=== PATIENT | female | born 1940 | race Caucasian/White ===

== ENCOUNTER 2017-07-11 11:12 | Inpatient (IN) ==
--- NOTE | 2017-07-11 14:09 | Internal Med History&Physical ---
Date of Encounter: 07/11/17 Time of Encounter: 14:04 Assessment and Plan (1) NSTEMI (non-ST elevated myocardial infarction) Current visit: Yes Status: Acute Patient with exertion or shortness of breath likely angina equivalent troponin 0.11 patient started on heparin will obtain 2-D echo and trend troponin and cardiology is consulted (2) COPD (chronic obstructive pulmonary disease) Current visit: Yes Status: Acute Patient has no diagnosis of COPD but very likely she has COPD and smoking history of a longtime exam she had decreased breath sounds and some wheezing started on steroids and the DuoNeb and consult customs guard for formal pulmonary function tests probably as outpatient when she stable Qualifiers: COPD type: COPD with acute exacerbation Qualified Code(s): J44.1 - Chronic obstructive pulmonary disease with (acute) exacerbation (3) Smoking Current visit: Yes Status: Chronic chronic Internal Medicine - H&P: HPI Chief complaint: sob, transfer from [place] Admitted From: Hospital to Hospital Transfer Plans for Post Hospital Care: Home History of present illness: Ms. Mata is a 76 year old female Patient transfer from [facility] due to positive troponin 0.11 patient with history of hypertension, COPD, smoking history, no prior cardiac event history patient was seen in the hospital about 4 days ago with shortness of breath was treated for bronchitis and some steroid some inhaler and then sent home apparently she did not get better still short of breath this morning feeling lightheaded with worsening shortness of breath especially with exertion no chest pain or tightness or pressure patient went back to [facility] and patient troponin was 0.5 and repeat was 0.11 she was started on l heparin and then transferred here after discussion with cardiology DR Almeida she also has some cough which is productive of mostly clear sputum no fever or chills denies any nausea or vomiting and remains no chest pain. Past Med Surg Social Fam HX - Past Medical History Medical history: COPD, hypertension - Past Surgical History Surgical History: no surgical history - Social History Smokeless Tobacco Status: Yes Internal Medicine - H&P: Meds Albuterol Sulfate [Ventolin Hfa] 1 puff IH AD 07/11/17 [History] Atorvastatin Calcium [Lipitor] 20 mg PO HS 07/11/17 [History] Azithromycin [Azithromycin] 1 tab PO DAILY 07/11/17 [History] Diltiazem CD (24hr) [Cardizem CD] 240 mg PO DAILY 07/11/17 [History] Enalapril Maleate [Vasotec] 5 mg PO DAILY 07/11/17 [History] Omeprazole [PriLOSEC] 20 mg PO DAILY 07/11/17 [History] PARoxetine HCl [Paroxetine HCl] 30 mg PO DAILY 07/11/17 [History] predniSONE [Prednisone] 50 mg PO DAILY 07/11/17 [History] 3 Allergy/AdvReac Type Severity Reaction Status Date / Time No Known Allergies Allergy Verified 07/11/17 14:13 All Systems PM: A 10-system review of systems was performed and is negative for pertinent findings except as documented above in the HPI. - Constitutional Constitutional: no chills, no fever(s), no night sweats - EENT Eyes: no change in vision, no discharge, no pain, no photophobia Ears: no ear discharge, no ear pain, no tinnitus Nose, mouth and throat: no dysphagia, no nasal discharge, no neck pain, no sore throat - Cardiovascular Cardiovascular ROS IM: dyspnea, dyspnea on exertion - Respiratory Respiratory: dyspnea, dyspnea on exertion, wheezing - Gastrointestinal Gastrointestinal: no abdominal pain, no diarrhea, no hematemesis, no hematochezia, no melena, no nausea, no vomiting - Genitourinary Genitourinary: no change in urinary stream, no dysuria, no flank pain, no hematuria - Musculoskeletal Musculoskeletal ROS IM: no numbness, no tingling - Constitutional General appearance: Present: A&O X 3, pleasant - Eye Eye exam: Present: PERRL, conjuntiva pink, sclera anicteric Pupils: Present: PERRL - Respiratory Respiratory exam: Present: rhonchi, wheezes - Cardiovascular Cardiovascular exam: Present: RRR, +S1, +S2. Absent: diastolic murmur, gallop, rubs, systolic murmur - GI/Abdominal GI/Abdominal exam: Present: normal bowel sounds, soft, no peritoneal signs. Absent: distended, tenderness
[2017-07-11] MEDS ORDERED: Ipratropium/Albuterol Neb 3 ML IH PRN (14:20)
[2017-07-11] MEDS: Ipratropium/Albuterol Neb 3 ML IH SCH ×2 (15:52→19:46)
[2017-07-11] MEDS ORDERED: *HR* Heparin 5,000 UNIT/ML VIAL IVP PRN ×2 (17:11)
[2017-07-11] MEDS ORDERED: *HR* Heparin 5,000 UNIT/ML VIAL IVP ONE (17:11)
[2017-07-11] MEDS ORDERED: Heparin 25,000 UNIT/500 ML D5W 25,000 UNIT/500 ML BAG IVC SCH (17:15)
[2017-07-11 17:38] LABS: Hematocrit 40.1 % (35.3-44.9); Mean Corpuscular HGB Conc 34.9 g/dL (31.6-35.5); Mean Corpuscular Hemoglobin 32.3 pg (28.0-33.3); Mean Corpuscular Volume 92.4 fL (83.0-100.0); Mean Platelet Volume 11.2 fL (9.4-12.4); Platelet Count 149 K/mcL (140-400); Red Blood Count 4.34 M/mcL (3.82-4.97); Red Cell Distribution Width 12.8 % (11.5-14.5)
[2017-07-11 17:43] LABS: Prothrombin Time 11.2 Seconds (9.4-12.1)
[2017-07-11 17:46] LABS: Activated Partial Thrombo Time 26.7 Seconds (26.0-36.0)
[2017-07-11 18:45] LABS: VBG HCO3 24 mEq/L (21-27); VBG PCO2 35 mmHg (41-51); VBG PH 7.45 pH Units (7.32-7.42); VBG PO2 63 mmHg (25-50)
[2017-07-11] MEDS: MethylPREDNISolone 40 MG/ML VIAL IVP SCH (18:59)
[2017-07-11] MEDS: 0.9 % Sodium Chloride 1,000 ML IVC SCH (19:00)
[2017-07-11] MEDS ORDERED: *HR* HYDROcodone/Acet 5/325 mg TABLET PO PRN (19:27)
[2017-07-11] MEDS ORDERED: Acetaminophen 325 MG TABLET PO PRN (19:27)
[2017-07-12] MEDS: Ipratropium/Albuterol Neb 3 ML IH SCH ×7 (00:15→23:26)
[2017-07-12] MEDS: MethylPREDNISolone 40 MG/ML VIAL IVP SCH ×4 (00:16→23:08)
[2017-07-12 00:48] LABS: Hematocrit 40.1 % (35.3-44.9); Hemoglobin 13.7 g/dL (11.5-15.4); Immature Granulocytes % 0.3 % (0-4); Lymphocytes # 1.5 K/mcL (0.6-4.6); Lymphocytes % 24.1 %; Mean Corpuscular HGB Conc 34.2 g/dL (31.6-35.5); Mean Corpuscular Hemoglobin 31.6 pg (28.0-33.3); Mean Corpuscular Volume 92.4 fL (83.0-100.0); Mean Platelet Volume 11.3 fL (9.4-12.4); Monocytes # 0.1 K/mcL (0.0-1.3); Monocytes % 1.8 %; Platelet Count 168 K/mcL (140-400); Red Blood Count 4.34 M/mcL (3.82-4.97); Red Cell Distribution Width 12.8 % (11.5-14.5); Segmented Neutrophils % 73.8 %
[2017-07-12 00:51] LABS: Neutrophils # 4.7 K/mcL (1.6-8.9)
[2017-07-12 01:21] LABS: Alanine Aminotransferase 16 Units/L (7-52); Albumin 3.6 g/dL (3.5-5.7); Albumin/Globulin Ratio 1.1 (1.1-2.2); Alkaline Phosphatase 96 Units/L (34-104); Aspartate Amino Transferase 14 Units/L (13-39); BUN/Creatinine Ratio 26 (6-26); Bilirubin,Total 0.3 mg/dL (0.3-1.0); Blood Urea Nitrogen 18 mg/dL (8-23); Calcium 8.8 mg/dL (8.6-10.3); Carbon Dioxide 24 mEq/L (23-29); Chloride 103 mEq/L (98-107); Chol/HDL Ratio 2.4 (0-4.9); Cholesterol 132 mg/dL (< 200); Globulin 3.2 g/dL (2.4-3.5); Glucose 145 mg/dL (70-105); HDL Cholesterol 55 mg/dL (40-59); LDL Cholesterol,Calculated 66 mg/dL (0-99); Magnesium 1.9 mg/dL (1.6-2.6); Osmolality,Calculated 284 (280-300); Potassium 3.7 mEq/L (3.5-5.1); Sodium 135 mEq/L (136-145); Total Protein 6.8 g/dL (6.4-8.9); Triglycerides 54 mg/dL (< 150); eGFR For African Americans > 60 (> 60); eGFR For Non-African Americans > 60 (> 60)
--- NOTE | 2017-07-12 09:25 | Cardiology Consult Note ---
Date of Encounter: 07/12/17 Time of Encounter: 08:30 Assessment and Plan (1) COPD (chronic obstructive pulmonary disease) Current Visit: Yes Status: Acute Per cardiology: -Presented with acute onset shortness of breath. -Significant smoking history. -Chest x-ray from [facility] reviewed with emphysema. -Currently on O2, not normally on O2 at home. -Management per primary service. Qualifiers: COPD type: COPD with acute exacerbation Qualified Code(s): J44.1 - Chronic obstructive pulmonary disease with (acute) exacerbation (2) Elevated troponin Current Visit: Yes Status: Acute Per cardiology: -Troponin 0.05 ([facility]), 0.23 ([facility]) in the setting of COPD exacerbation, HTN. -Denies chest pain. -NO acute ischemic ECG changes. -ON heparin drip, statin, beta rowan. -TTE pending. -No previous cardiac history. -Does have significant risk factros for CAD with smoking, hyperlipidemia, HTN. -Will check stat troponin now. -Will add ASA 81mg daily. -TTE pending. -Further recommendations pending TTE and troponin. -AT this time, do not suspect NSTEMI, suspect demand ischemia. NO cardiac rehab warranted at this time. (3) Hypertension Current Visit: Yes Status: Chronic Per caridology: -KNown HTN. -On amy inhibitor and beta blokcer. -BP 150-160s systolic. -Will titrate amy inhibitor. -Will continue to monitor. Qualifiers: Hypertension type: essential hypertension Qualified Code(s): I10 - Essential (primary) hypertension (4) Smoking Current Visit: Yes Status: Chronic Per cardiology: -Patient reports smoking 1ppd for 57years. -States she knows she needs to quit. -Smoking cessation education provided. Discussion w patient/family: The assessment and plan as outlined above was discussed with the patient who expressed understanding and agreement. All questions were answered. Thank you for involving us in the care of your patient. Please call with any questions. Discussed and reviewed with . History of Present Illness Consult date: 07/11/17 Requesting physician: Dany Montgomery Consult reason: NSTEMI Chief complaint: shortness of breath History of present illness: Ms. Mata is a 76 year old female with a relevant past medical history of HTN, hyperlipidemia, COPD, significant smoking history who presented to [facility] due to sudden onset of shortness of breath. Patient states on Monday she had sudden onset of shortness of breath and presented to [facility], patient states she was discharged home after being seen. Patient states on Monday, she again had sudden onset of shortness of breath while walking to bathroom. Patient states she called the squad and again was taken to [facility]. Patient was transferred to [facility] due to elevated troponins. Patient denies chest pain, denies increased fatigue. Patient states until Monday, her shortness of breath was her baseline. Patient states breathing is somewhat imrpoved today, however is requireing O2, not normally on O2 at home. Past Med Surg Social Fam HX - Past Medical History Attestation: Yes The following information was validated with the patient. Source: patient Medical history: cancer, COPD, hypertension Psychiatric history: depression - Past Surgical History Surgical History: cholecystectomy - Social History Smoking Status: Current every day smoker Packs per day: 0.25 Smokeless Tobacco Status: Yes Alcohol use: none Drug use: none Medications and Allergies Albuterol Sulfate [Ventolin Hfa] 1 puff IH AD 07/11/17 [History] Atorvastatin Calcium [Lipitor] 20 mg PO HS 07/11/17 [History] Azithromycin [Azithromycin] 1 tab PO DAILY 07/11/17 [History] Diltiazem CD (24hr) [Cardizem CD] 240 mg PO DAILY 07/11/17 [History] Enalapril Maleate [Vasotec] 5 mg PO DAILY 07/11/17 [History] Omeprazole [PriLOSEC] 20 mg PO DAILY 07/11/17 [History] PARoxetine HCl [Paroxetine HCl] 30 mg PO DAILY 07/11/17 [History] predniSONE [Prednisone] 50 mg PO DAILY 07/11/17 [History] 3 Allergy/AdvReac Type Severity Reaction Status Date / Time No Known Allergies Allergy Verified 07/11/17 14:13 All Systems Review: A 10-system review of systems was performed and is negative for pertinent findings except as documented above in the HPI. - Cardiovascular Cardiovascular: as per HPI, dyspnea on exertion Physical Examination Vital Signs, Last 4 Hours Temp Pulse Resp BP Pulse Ox 07/12/17 08:44 98.2 F 70 17 169/71 90 07/12/17 08:00 16 92 General: Conversant, No Apparent Distress HEENT: Atraumatic, Normocephaly, Mucus Membranes Moist Neck: No JVD, Normal carotid pulses Cardiac: Reg Rate and Rhythm, Normal S1 and S2, No Murmur Lungs: Other (Lung sounds diminished throughout. ) Neuro: Alert and responsive, No focal deficits noted Abdomen: Soft, Non-Tender Skin: No rashes noted on visualized skin Musculoskeletal: No Chest Wall Tenderness Extremities: No Clubbing, No Cyanosis, No Edema, Normal Pulses Results 07/12/17 00:36 07/12/17 00:36 Lab Results Active Medications Acetaminophen (Tylenol) 650 mg PO Q6HR PRN PRN Reason: Mild Pain/Fever Stop: 01/10/18 19:28 Hydrocodone Bitart/Acetaminophen (Pharr 5-325 Mg) 1 tab PO Q6HR PRN PRN Reason: Moderate Pain Stop: 01/10/18 19:28 Albuterol/Ipratropium (Duoneb) 3 ml IH [id number] EDIL Stop: 01/10/18 16:01 Last Admin: 07/12/17 07:59 Dose: 3 ml Albuterol/Ipratropium (Duoneb) 3 ml IH [id number] PRN PRN Reason: Shortness Of Breath/Wheezing Stop: 01/10/18 14:21 Aspirin (Aspirin Ec) 81 mg PO DAILY [facility] Stop: 01/11/18 09:01 Atorvastatin Calcium (Lipitor) 20 mg PO HS [facility] Stop: 01/10/18 21:01 Last Admin: 07/11/17 21:13 Dose: 20 mg Azithromycin (Zithromax) 250 mg PO DAILY [facility] Stop: 01/11/18 09:01 Heparin Sodium (Porcine) (Heparin) 3,200 unit 60 unit/kg (3200 unit) IVP Q6HR PRN PRN Reason: SEE COMMENTS Stop: 01/10/18 17:12 Heparin Sodium (Porcine) (Heparin) 1,600 unit 30 unit/kg (1600 unit) IVP Q6H PRN PRN Reason: SEE COMMENTS Stop: 01/10/18 17:12 Last Admin: 07/12/17 01:57 Dose: 1,600 unit Hydralazine HCl (Hydralazine) 10 mg IVP Q6HR PRN PRN Reason: SBP>160 Stop: 01/11/18 08:55 Sodium Chloride (0.9 % Sodium Chloride) 1,000 mls @ 75 mls/hr IVC .[id number] EDIL Stop: 07/12/17 16:54 Last Admin: 07/11/17 19:00 Dose: 75 mls/hr Heparin Sodium/Dextrose (Heparin 25,000 Unit/500 Ml D5w) 25,000 unit in 500 mls @ 12.968 mls/hr IVC .Q24H EDIL; 12 UNIT/KG/HR PRN Reason: Protocol Stop: 01/10/18 17:16 Last Titration: 07/12/17 01:55 Dose: 13.78 unit/kg/hr, 14.9 mls/hr Lisinopril (Zestril) 10 mg PO DAILY [facility] Stop: 01/11/18 09:01 Methylprednisolone (Solu-Medrol) 40 mg IVP Q8HR EDIL Stop: 01/10/18 16:01 Last Admin: 07/12/17 00:16 Dose: 40 mg Metoprolol Tartrate (Lopressor) 25 mg PO BID EDIL Stop: 01/10/18 21:01 Last Admin: 07/11/17 21:13 Dose: 25 mg Omeprazole (Prilosec) 20 mg PO DAILY [facility] PRN Reason: Protocol Stop: 01/11/18 09:01 Paroxetine HCl (Paxil) 30 mg PO DAILY [facility] PRN Reason: Protocol Stop: 01/11/18 09:01 Laboratory Tests 07/11/17 07/12/17 07/12/17 14:45 00:36 00:36 Hgb 13.7 Creatinine 0.69 Troponin I 0.23 H* LDL Cholesterol, Calc 66 - Imaging and Cardiology Chest Xray: report reviewed Echo: pending - EKG Interpretation EKG results cardiology: personally reviewed (ECG with SR.), other (Telemetry reviewed with average HR previous 12 hours noted to be 66, SR. PVCs and PACs noted.) Consult Discharge Plan - Plan Referrals: NONE,PCP [Primary Care Provider] -
[2017-07-12] MEDS: Aspirin Enteric Coated 81 MG Tablet PO SCH (10:39)
[2017-07-12] MEDS: 0.9 % Sodium Chloride 1,000 ML IVC SCH (10:40)
[2017-07-12] MEDS: Azithromycin 250 MG TABLET PO SCH (10:41)
--- NOTE | 2017-07-12 13:33 | Internal Med Progress Note ---
Date of Encounter: 07/12/17 Time of Encounter: 12:56 - Assessment and plan (1) COPD exacerbation Current Visit: Yes Status: Acute Assessment and plan: continue O2 supplementation and systemic steroids (Solumedrol 40mg IV q8h) continue bronchodilator support monitor O2 sat, goal O2 sat: 8-92% continue Azithromycin will closely monitor respiratory status titrate off O2 support as tolerated (2) Elevated troponin Current Visit: Yes Status: Acute Assessment and plan: cardiology evaluation appreciated 2D echo reviewed current TNI elevation unlikely ACS continue home dose of ASA pt chest pain free (3) Anxiety Current Visit: Yes Status: Chronic Assessment and plan: continue home medications will adjust medications as needed (4) Hypertension Current Visit: Yes Status: Chronic Assessment and plan: Noted to be hypertensive increased home dose of Lisinopril Hydralazine 10mg IV q6h prn SBP>160 will closely monitor BP Qualifiers: Hypertension type: essential hypertension Qualified Code(s): I10 - Essential (primary) hypertension (5) Smoking Current Visit: Yes Status: Chronic Assessment and plan: smoking cessation counseling provided pt trying to quit nicotine supplementation provided (6) DVT prophylaxis Current Visit: Yes Status: Acute Assessment and plan: Heparin SQ - Subjective Interval history: Patient is a 76y/o female transferred from an outside facility for elevated TNI. after further evaluation, pt was noted to have acute respiratory distress secondary to COPD exacerbation She reports of not being on home oxygen and is currently requiring 2-3L NC. She reports of feeling better since her hospitalization. Denies any chest pain at this time As per pt and daughter (present at bedside), pt has history of severe anxiety and has not received much relieve from Paxil. Daughter requested another agent to help with anxiety. during my evaluation, pt was calm and no shakiness was noted which was reported by the daughter and nursing staff, will continue to monitor and add Xanax prn if needed. - Constitutional Vitals: Temp Pulse Resp BP Pulse Ox 97.8 F 68 17 167/78 90 07/12/17 12:31 07/12/17 12:31 07/12/17 12:31 07/12/17 12:31 07/12/17 12:31 General appearance: Present: cooperative, A&O X 3, pleasant, no acute distress, answers questions appropriately - Head Head exam: Present: atraumatic, normocephalic - Eye Eye exam: Present: conjuntiva pink, sclera anicteric - Respiratory Respiratory exam: Present: decreased breath sounds. Absent: respiratory distress (decreased air entry bilaterally ), wheezes - Cardiovascular Cardiovascular exam: Present: RRR, +S1, +S2. Absent: diastolic murmur, gallop, rubs, systolic murmur - GI/Abdominal GI/Abdominal exam: Present: normal bowel sounds, soft, no peritoneal signs. Absent: distended, tenderness - Extremities Exam Extremities exam: Present: warm, radial pulses palpable and symmetrical. Absent : calf tenderness, cyanotic, pedal edema - Neurological Exam Neurological exam: Present: alert, oriented X3 - Psychiatric Psychiatric exam: Present: normal affect, normal mood Internal Medicine: Result - Labs CBC & Chem 7: 07/12/17 00:36 07/12/17 00:36 Labs: Short CBC 07/11/17 07/12/17 Range/Units 17:23 00:36 WBC 3.8 L 6.3 D (4.3-11.1) K/mcL Hgb 14.0 13.7 (11.5-15.4) g/dL Hct 40.1 40.1 (35.3-44.9) % Plt Count 149 168 (140-400) K/mcL Neutrophils # 4.7 (1.6-8.9) K/mcL BMP 07/12/17 00:36 Sodium 135 L Potassium 3.7 Chloride 103 Carbon Dioxide 24 BUN 18 Creatinine 0.69 Glucose 145 H Calcium 8.8 Cardiac Enzymes 07/11/17 07/12/17 Range/Units 14:45 09:14 Troponin I 0.23 H* 0.10 H* (< 0.04) ng/mL Liver Function 07/12/17 Range/Units 00:36 Total Bilirubin 0.3 (0.3-1.0) mg/dL AST 14 (13-39) Units/L ALT 16 (7-52) Units/L Alkaline Phosphatase 96 (34-104) Units/L Albumin 3.6 (3.5-5.7) g/dL - ABG Interpretation ABG results: PT/INR, D-dimer PT 11.2 Seconds (9.4-12.1) 07/11/17 17:23 - Impressions Impressions Echocardiogram 07/11/17 14:20 Impressions: LVEF 60%. Mild left ventricular diastolic dysfunction. Normal right ventricular structure and function. Mild-moderate aortic regurgitation. Mild tricuspid regurgitation. No pulmonary hypertension. Left Ventricular Wall Motion: Rest Echo Findings All wall segments showed normal motion. Findings: Study Quality * Technically adequate exam. ECG Findings * Normal sinus rhythm. Left Ventricle * LVEF 60%. * Normal LV chamber size, wall thickness and function. * Mild left ventricular diastolic dysfunction. Right Ventricle * Normal right ventricular structure and function. Left Atrium * Normal left atrial size. Right Atrium * Normal right atrial size. Aortic Valve * Trileaflet aortic valve. * No aortic stenosis. * Mild-moderate aortic regurgitation. Mitral Valve * Normal mitral valve structure. * No mitral stenosis. * Trace mitral regurgitation. Tricuspid Valve * Tricuspid valve not well visualized. * Mild tricuspid regurgitation. * Estimated RA pressure is 3 mmHg. * Estimated RVSP is 27 mmHg. * No pulmonary hypertension. Pulmonic Valve * Pulmonic valve is not well visualized. * No pulmonic stenosis. * No pulmonic regurgitation. Pulmonary Artery * Pulmonary artery not well visualized. Aorta * Normally sized aortic root. * Ascending aorta is not well visualized. Pericardium * There is no pericardial effusion present. Interatrial Septum * No evidence of PFO by color Doppler. IVC * Normal IVC dimensions and inspiratory collapse. Consult Discharge Plan - Plan Referrals: NONE,PCP [Primary Care Provider] -
[2017-07-12] MEDS: Nicotine 21 MG PATCH.TD24 TD SCH (13:44)
[2017-07-12] MEDS: *HR* Heparin 5,000 UNIT/ML VIAL SQ SCH (17:49)
[2017-07-13] MEDS: Ipratropium/Albuterol Neb 3 ML IH SCH ×6 (03:34→23:32)
[2017-07-13 03:39] LABS: Hemoglobin 12.6 g/dL (11.5-15.4); Immature Granulocytes % 0.6 % (0-4); Lymphocytes % 13.1 %; Mean Corpuscular HGB Conc 33.2 g/dL (31.6-35.5); Mean Corpuscular Hemoglobin 31.6 pg (28.0-33.3); Mean Corpuscular Volume 95.2 fL (83.0-100.0); Mean Platelet Volume 11.7 fL (9.4-12.4); Monocytes # 0.2 K/mcL (0.0-1.3); Monocytes % 2.5 %; Neutrophils # 6.6 K/mcL (1.6-8.9); Platelet Count 169 K/mcL (140-400); Red Blood Count 3.99 M/mcL (3.82-4.97); Red Cell Distribution Width 12.7 % (11.5-14.5); Segmented Neutrophils % 83.8 %
[2017-07-13 04:12] LABS: BUN/Creatinine Ratio 32 (6-26); Blood Urea Nitrogen 21 mg/dL (8-23); Calcium 8.4 mg/dL (8.6-10.3); Carbon Dioxide 24 mEq/L (23-29); Chloride 107 mEq/L (98-107); Glucose 143 mg/dL (70-105); Osmolality,Calculated 287 (280-300); Potassium 4.2 mEq/L (3.5-5.1); Sodium 136 mEq/L (136-145); eGFR For African Americans > 60 (> 60); eGFR For Non-African Americans > 60 (> 60)
[2017-07-13] MEDS: *HR* Heparin 5,000 UNIT/ML VIAL SQ SCH ×2 (05:17→17:00)
[2017-07-13] MEDS: Aspirin Enteric Coated 81 MG Tablet PO SCH (08:36)
[2017-07-13] MEDS: Nicotine 21 MG PATCH.TD24 TD SCH (08:36)
[2017-07-13] MEDS: Azithromycin 250 MG TABLET PO SCH (08:36)
[2017-07-13] MEDS: MethylPREDNISolone 40 MG/ML VIAL IVP SCH ×2 (08:36→16:59)
[2017-07-13] MEDS: Diltiazem CD (24hr) 240 MG CAPSULE PO SCH (08:36)
[2017-07-13] MEDS ORDERED: Lisinopril 20 MG TABLET PO SCH (09:00)
--- NOTE | 2017-07-13 11:08 | Internal Med Progress Note ---
Date of Encounter: 07/13/17 Time of Encounter: 10:45 - Assessment and plan (1) COPD exacerbation Current Visit: Yes Status: Acute Assessment and plan: continue O2 supplementation and systemic steroids (Solumedrol 40mg IV q12h) continue bronchodilator support monitor O2 sat, goal O2 sat: 88-92% continue Azithromycin will closely monitor respiratory status titrate off O2 support as tolerated (2) Elevated troponin Current Visit: Yes Status: Acute Assessment and plan: cardiology evaluation appreciated 2D echo reviewed current TNI elevation unlikely ACS continue home dose of ASA pt chest pain free (3) Anxiety Current Visit: Yes Status: Chronic Assessment and plan: continue home medications will adjust medications as needed (4) Hypertension Current Visit: Yes Status: Chronic Assessment and plan: Noted to be hypertensive continue Lisinopril and Metoprolol Hydralazine 10mg IV q6h prn SBP>160 will closely monitor BP Qualifiers: Hypertension type: essential hypertension Qualified Code(s): I10 - Essential (primary) hypertension (5) Smoking Current Visit: Yes Status: Chronic Assessment and plan: smoking cessation counseling provided pt trying to quit nicotine supplementation provided (6) DVT prophylaxis Current Visit: Yes Status: Acute Assessment and plan: Heparin SQ - Subjective Interval history: Patient is a 76y/o female transferred from an outside facility for elevated TNI. after further evaluation, pt was noted to have acute respiratory distress secondary to COPD exacerbation She reports of not being on home oxygen and is currently requiring 2-3L NC. Reports of feeling better compared to previous day. Remains O2 dependent. - Constitutional Vitals: Temp Pulse Resp BP Pulse Ox 98.2 F 66 18 169/86 90 07/13/17 06:22 07/13/17 06:22 07/13/17 07:39 07/13/17 06:22 07/13/17 07:39 General appearance: Present: cooperative, A&O X 3, pleasant, no acute distress, answers questions appropriately - Head Head exam: Present: atraumatic, normocephalic - Eye Eye exam: Present: conjuntiva pink, sclera anicteric - Respiratory Respiratory exam: Absent: respiratory distress, wheezes (equal air entry bilaterally ) - Cardiovascular Cardiovascular exam: Present: RRR, +S1, +S2. Absent: diastolic murmur, gallop, rubs, systolic murmur - GI/Abdominal GI/Abdominal exam: Present: normal bowel sounds, soft, no peritoneal signs. Absent: distended, tenderness - Extremities Exam Extremities exam: Present: warm, radial pulses palpable and symmetrical. Absent : calf tenderness, pedal edema - Neurological Exam Neurological exam: Present: alert, oriented X3 - Psychiatric Psychiatric exam: Present: normal affect, normal mood Internal Medicine: Result - Labs CBC & Chem 7: 07/13/17 03:19 07/13/17 03:19 Labs: Short CBC 07/13/17 Range/Units 03:19 WBC 7.9 (4.3-11.1) K/mcL Hgb 12.6 (11.5-15.4) g/dL Hct 38.0 (35.3-44.9) % Plt Count 169 (140-400) K/mcL Neutrophils # 6.6 (1.6-8.9) K/mcL BMP 07/13/17 03:19 Sodium 136 Potassium 4.2 Chloride 107 Carbon Dioxide 24 BUN 21 Creatinine 0.66 Glucose 143 H Calcium 8.4 L - ABG Interpretation ABG results: PT/INR, D-dimer PT 11.2 Seconds (9.4-12.1) 07/11/17 17:23 Consult Discharge Plan - Plan Referrals: NONE,PCP [Primary Care Provider] -
[2017-07-14] MEDS: Ipratropium/Albuterol Neb 3 ML IH SCH ×4 (03:39→15:50)
[2017-07-14] MEDS: *HR* Heparin 5,000 UNIT/ML VIAL SQ SCH (05:43)
[2017-07-14] MEDS: MethylPREDNISolone 40 MG/ML VIAL IVP SCH (05:43)
[2017-07-14 07:58] LABS: Basophils % 0.1 %; Hematocrit 37.4 % (35.3-44.9); Hemoglobin 12.8 g/dL (11.5-15.4); Immature Granulocytes % 0.8 % (0-4); Lymphocytes # 1.1 K/mcL (0.6-4.6); Lymphocytes % 13.3 %; Mean Corpuscular HGB Conc 34.2 g/dL (31.6-35.5); Mean Corpuscular Hemoglobin 31.5 pg (28.0-33.3); Mean Corpuscular Volume 92.1 fL (83.0-100.0); Mean Platelet Volume 11.9 fL (9.4-12.4); Monocytes # 0.5 K/mcL (0.0-1.3); Neutrophils # 6.8 K/mcL (1.6-8.9); Platelet Count 170 K/mcL (140-400); Red Blood Count 4.06 M/mcL (3.82-4.97); Red Cell Distribution Width 12.9 % (11.5-14.5); Segmented Neutrophils % 79.8 %
[2017-07-14 08:01] LABS: BUN/Creatinine Ratio 40 (6-26); Blood Urea Nitrogen 25 mg/dL (8-23); Calcium 8.3 mg/dL (8.6-10.3); Carbon Dioxide 27 mEq/L (23-29); Chloride 104 mEq/L (98-107); Glucose 128 mg/dL (70-105); Osmolality,Calculated 288 (280-300); Phosphorous 3.1 mg/dL (2.7-4.5); Potassium 3.8 mEq/L (3.5-5.1); Sodium 136 mEq/L (136-145); eGFR For African Americans > 60 (> 60); eGFR For Non-African Americans > 60 (> 60)
[2017-07-14] MEDS ORDERED: Lisinopril 20 MG TABLET PO SCH (08:45)
[2017-07-14] MEDS: Diltiazem CD (24hr) 240 MG CAPSULE PO SCH (08:53)
[2017-07-14] MEDS: Aspirin Enteric Coated 81 MG Tablet PO SCH (08:53)
[2017-07-14] MEDS: Azithromycin 250 MG TABLET PO SCH (08:53)
[2017-07-14] MEDS: Nicotine 21 MG PATCH.TD24 TD SCH (08:54)
[2017-07-14 15:06] VITALS: BP 131/65
--- NOTE | 2017-07-14 16:01 | Discharge Summary ---
Date of Encounter: 07/14/17 Time of Encounter: 14:20 - Discharge Diagnosis (1) COPD exacerbation Priority: Primary Status: Acute (2) Elevated troponin Priority: Secondary Status: Acute (3) Anxiety Priority: Secondary Status: Chronic (4) Hypertension Priority: Secondary Status: Chronic Qualifiers: Hypertension type: essential hypertension Qualified Code(s): I10 - Essential (primary) hypertension (5) Smoking Priority: Secondary Status: Chronic (6) DVT prophylaxis Priority: Secondary Status: Acute - Discharge Medications Prescriptions: Albuterol Sulfate [Albuterol Inhaler] 1 puff IH Q4H PRN #1 inh PRN Reason: Shortness Of Breath/Wheezing Aspirin Enteric Coated [Aspirin EC] 81 mg PO DAILY #30 tablet. Azithromycin [Zithromax] 250 mg PO DAILY #2 tablet Budesonide/Formoterol 160/4.5 [Symbicort 160/4.5] 1 puff IH BIDR #1 hfa.aer.ad Lisinopril [Zestril] 40 mg PO DAILY #30 tablet Metoprolol [Lopressor] 25 mg PO BID #60 tablet Home Medications: Albuterol Sulfate [Ventolin Hfa] 1 puff IH AD 07/11/17 [History] Atorvastatin Calcium [Lipitor] 20 mg PO HS 07/11/17 [History] Azithromycin 1 tab PO DAILY 07/11/17 [History] Diltiazem CD (24hr) [Cardizem CD] 240 mg PO DAILY 07/11/17 [History] Omeprazole [PriLOSEC] 20 mg PO DAILY 07/11/17 [History] PARoxetine HCl [Paroxetine HCl] 30 mg PO DAILY 07/11/17 [History] predniSONE [Prednisone] 50 mg PO DAILY 07/11/17 [History] Albuterol Sulfate [Albuterol Inhaler] 1 puff IH Q4H PRN #1 inh 07/14/17 [Rx] Aspirin Enteric Coated [Aspirin EC] 81 mg PO DAILY #30 tablet. 07/14/17 [Rx] Azithromycin [Zithromax] 250 mg PO DAILY #2 tablet 07/14/17 [Rx] Budesonide/Formoterol 160/4.5 [Symbicort 160/4.5] 1 puff IH BIDR #1 hfa.aer.ad 07/14/17 [Rx] Lisinopril [Zestril] 40 mg PO DAILY #30 tablet 07/14/17 [Rx] Metoprolol [Lopressor] 25 mg PO BID #60 tablet 07/14/17 [Rx] Allergies/Adverse Reactions: 3 Allergy/AdvReac Type Severity Reaction Status Date / Time No Known Allergies Allergy Verified 07/11/17 14:13 Date of admission: 07/11/17 14:59 Primary care physician: PCP NONE Consults: 07/11/17 14:18 Consult to Physician [CONS] Routine Consulting Provider: Adrián Almeida Reason for Consult: nstemi Time Notified: 14:19 Call Completed: No 07/11/17 15:47 Consult to Nutrition [CONS] Routine Comment: Consulting Provider: NUTRITION Reason for Dietary Consult: MST Score 07/11/17 17:12 Consult to Pulmonology [CONS] Routine Consulting Provider: [facility] Reason for Consult: copd Time Notified: 17:13 Call Completed: No 07/12/17 15:16 Consult to Physical Therapy [CONS] Routine Comment: Evaluate, develop and implement POC Reason for Consult: weakness tremors difficulty walking family concerns 07/12/17 15:20 Consult to Occupational Therapy [CONS] Routine Comment: Evaluate, develop and implement POC Reason for Consult: weakness tremors difficulty walking family concerns Discharging clinician: Valorie Rajput Anticipated date of discharge: 07/14/17 - Patient Status Disposition: Home, Self-Care Condition: Good Functional capacity at discharge: independent ambulation Overall status at discharge: patient is back to baseline - Discharge Instructions Follow Up With: Agatha Young FUTURES TRADER [Advanced Practice Nurse] - 07/21/17 8:00 am (Please follow up as schedule...) NONE,PCP [Primary Care Provider] - Additional Instructions: Please follow up with primary care physician within five days after your discharge from the hospital. Please follow up with pulmonology within one to two weeks after your discharge from the hospital. Please continue long steroid taper (Prednisone 60mg once daily for three days followed by 50mg once daily x 3 days, followed by 40mg once daily 3 days, followed by 30mg once daily x 3 days, followed by 20mg once daily x 3 days, followed by 10mg once daily x 3 days) Continue oral antibiotics as prescribed Your home meds have been changed as follows: 1. Aspirin 81mg once a day has been added 2. Metoprolol 25mg twice a day has been added 3. Lisinopril 40mg once a day has been added 4. Vasotec has been discontinued 5. Symbicort and Albuterol have been added Resume all other medications as prescribed by your primary care physician. - Diet and Activity Activity: wear oxygen at all times, wear oxygen at night Diet: low fat, low cholesterol, low salt diet Hospital course: Ms. Mata is a 76 year old female with PMH Of HTN, HLD, COPD, tobacco abuse who was transferred from [facility] for management of elevated TNI and COPD exacerbation. Pt was evaluated by cardiology and her presenting symptoms were secondary to her respiratory status rather than cardiac etiology. She was started on ASA, lipitor, and metoprolol. She was continued on systemic steroids and bronchodilator support. She remained O2 dependent and qualified for home oxygen therapy. At this time she is hemodynamically stable and will be discharged to home with home oxygen. - Time Spent with Patient Total time spent providing and/or coordinating discharge services: Greater than 30 minutes - Constitutional Vitals: Temp Pulse Resp BP Pulse Ox 97.7 F 51 14 131/65 88 07/14/17 15:00 07/14/17 15:00 07/14/17 15:00 07/14/17 15:00 07/14/17 15:00 General appearance: Present: cooperative, A&O X 3, pleasant, no acute distress, answers questions appropriately - Head Head exam: Present: atraumatic, normocephalic - Eye Eye exam: Present: conjuntiva pink, sclera anicteric - Respiratory Respiratory exam: Present: CTAB. Absent: respiratory distress, wheezes - Cardiovascular Cardiovascular exam: Present: RRR, +S1, +S2. Absent: diastolic murmur, gallop, rubs, systolic murmur - GI/Abdominal GI/Abdominal exam: Present: normal bowel sounds, soft, no peritoneal signs. Absent: distended, tenderness - Extremities Exam Extremities exam: Present: warm, radial pulses palpable and symmetrical. Absent : calf tenderness, pedal edema - Neurological Exam Neurological exam: Present: alert, oriented X3 - Psychiatric Psychiatric exam: Present: normal affect, normal mood
== END 2017-07-14 17:25 | disposition home or self-care (01) | DRG 191 ==
LOC: 2ANU → SUATTDRO 14:59
PROVIDERS: ADMIT Internal Medicine Cardiovascular Disease; ATTEND Internal Medicine

== ENCOUNTER 2019-06-21 19:16 | Inpatient (IN) ==
[2019-06-21] MEDS ORDERED: Ipratropium/Albuterol Neb 3 ML IH ONE (19:51)
[2019-06-21] MEDS ORDERED: methylPREDNISolone 125 MG/2 ML VIAL IVP ONE (19:51)
[2019-06-21 20:22] LABS: Basophils % 0.2 %; Eosinophils % 0.4 %; Hematocrit 34.4 % (35.3-44.9); Hemoglobin 11.9 g/dL (11.5-15.4); Immature Granulocytes % 0.4 % (0-4); Lymphocytes # 1.2 K/mcL (0.6-4.6); Lymphocytes % 13.7 %; Mean Corpuscular HGB Conc 34.6 g/dL (31.6-35.5); Mean Corpuscular Volume 89.6 fL (83.0-100.0); Mean Platelet Volume 10.2 fL (9.4-12.4); Monocytes # 0.4 K/mcL (0.0-1.3); Monocytes % 4.9 %; Neutrophils # 6.9 K/mcL (1.6-8.9); Platelet Count 188 K/mcL (140-400); Red Blood Count 3.84 M/mcL (3.82-4.97); Red Cell Distribution Width 14.4 % (11.5-14.5); Segmented Neutrophils % 80.4 %; White Blood Count 8.6 K/mcL (4.3-11.1)
[2019-06-21 20:44] LABS: BUN/Creatinine Ratio 17 (6-26); Blood Urea Nitrogen 12 mg/dL (8-23); Carbon Dioxide 24 mEq/L (23-29); Chloride 99 mEq/L (98-107); Glucose 134 mg/dL (70-105); Osmolality,Calculated 278 (280-300); Potassium 3.4 mEq/L (3.5-5.1); Sodium 133 mEq/L (136-145); Troponin I < 0.03 ng/mL (< 0.04); eGFR For African Americans > 60 (> 60); eGFR For Non-African Americans > 60 (> 60)
[2019-06-21] MEDS ORDERED: Azithromycin 250 MG TABLET PO ONE (21:55)
[2019-06-22] MEDS ORDERED: Nicotine 2 MG GUM BC PRN (03:30)
[2019-06-22] MEDS ORDERED: D5% in Water 1,000 ML IVC PRN (03:30)
[2019-06-22] MEDS ORDERED: Dextrose Gel 15 GM/37.5 ML TUBE PO PRN ×2 (03:30)
[2019-06-22] MEDS ORDERED: Naloxone 0.4 MG/ML INJ IVP PRN (03:30)
[2019-06-22] MEDS ORDERED: *HR* Dextrose 50 % in Water (Syg) 50 ML SYRINGE IVP PRN (03:30)
[2019-06-22] MEDS ORDERED: Albuterol 2.5 MG/3 ML NEBULIZER IH PRN (03:30)
[2019-06-22] MEDS ORDERED: Potassium Chloride Elixir 20 MEQ/15 ML UDC PO ONE (03:33)
[2019-06-22] MEDS ORDERED: Insulin LISPRO 300 UNITS/3 ML VIAL SQ SCH ×2 (03:45→07:30)
[2019-06-22 04:19] LABS: Basophils % 0.1 %; Hematocrit 33.2 % (35.3-44.9); Hemoglobin 11.1 g/dL (11.5-15.4); Immature Granulocytes % 0.3 % (0-4); Lymphocytes # 0.6 K/mcL (0.6-4.6); Lymphocytes % 6.5 %; Mean Corpuscular HGB Conc 33.4 g/dL (31.6-35.5); Mean Corpuscular Hemoglobin 31.1 pg (28.0-33.3); Mean Platelet Volume 10.9 fL (9.4-12.4); Monocytes % 0.5 %; Neutrophils # 8.1 K/mcL (1.6-8.9); Platelet Count 190 K/mcL (140-400); Prothrombin Time 11.6 Seconds (9.4-12.1); Red Blood Count 3.57 M/mcL (3.82-4.97); Segmented Neutrophils % 92.6 %; White Blood Count 8.7 K/mcL (4.3-11.1)
[2019-06-22] MEDS: Ipratropium/Albuterol Neb 3 ML IH SCH ×4 (04:23→23:16)
[2019-06-22 04:33] LABS: Alanine Aminotransferase 10 Units/L (7-52); Albumin 3.8 g/dL (3.5-5.7); Albumin/Globulin Ratio 1.2 (1.1-2.2); Alkaline Phosphatase 112 Units/L (34-104); Aspartate Amino Transferase 10 Units/L (13-39); BUN/Creatinine Ratio 18 (6-26); Bilirubin,Total 0.3 mg/dL (0.3-1.0); Blood Urea Nitrogen 14 mg/dL (8-23); Calcium 9.1 mg/dL (8.6-10.3); Carbon Dioxide 25 mEq/L (23-29); Chloride 98 mEq/L (98-107); Globulin 3.2 g/dL (2.4-3.5); Glucose 193 mg/dL (70-105); Magnesium 1.8 mg/dL (1.6-2.6); Osmolality,Calculated 280 (280-300); Phosphorous 4.3 mg/dL (2.7-4.5); Potassium 3.6 mEq/L (3.5-5.1); Sodium 132 mEq/L (136-145); eGFR For African Americans > 60 (> 60); eGFR For Non-African Americans > 60 (> 60)
[2019-06-22] MEDS: *HR* Heparin 5,000 UNIT/ML VIAL SQ SCH ×2 (05:01→17:54)
[2019-06-22 06:10] LABS: Estimated Average Glucose 111 mg/dl
[2019-06-22 07:05] LABS: VBG HCO3 24 mEq/L (21-27); VBG PCO2 39 mmHg (41-51); VBG PH 7.39 pH Units (7.32-7.42); VBG PO2 87 mmHg (25-50)
[2019-06-22] MEDS: predniSONE 20 MG TABLET PO SCH (09:38)
[2019-06-22] MEDS: Nicotine 14 MG PATCH.TD24 TD SCH (09:38)
[2019-06-22] MEDS: Azithromycin 250 MG TABLET PO SCH (09:38)
[2019-06-23] MEDS: Ipratropium/Albuterol Neb 3 ML IH SCH ×4 (04:07→21:59)
[2019-06-23] MEDS: *HR* Heparin 5,000 UNIT/ML VIAL SQ SCH ×2 (05:47→17:34)
[2019-06-23] MEDS: predniSONE 20 MG TABLET PO SCH (08:42)
[2019-06-23] MEDS: Nicotine 14 MG PATCH.TD24 TD SCH (08:42)
[2019-06-23] MEDS: Azithromycin 250 MG TABLET PO SCH (08:42)
[2019-06-24] MEDS: Ipratropium/Albuterol Neb 3 ML IH SCH ×2 (04:00→11:12)
[2019-06-24] MEDS: *HR* Heparin 5,000 UNIT/ML VIAL SQ SCH (05:37)
[2019-06-24 06:18] LABS: BUN/Creatinine Ratio 29 (6-26); Blood Urea Nitrogen 20 mg/dL (8-23); Calcium 9.1 mg/dL (8.6-10.3); Carbon Dioxide 28 mEq/L (23-29); Chloride 100 mEq/L (98-107); Glucose 88 mg/dL (70-105); Magnesium 1.8 mg/dL (1.6-2.6); Osmolality,Calculated 284 (280-300); Potassium 4.1 mEq/L (3.5-5.1); Sodium 136 mEq/L (136-145); eGFR For African Americans > 60 (> 60); eGFR For Non-African Americans > 60 (> 60)
[2019-06-24] MEDS: predniSONE 20 MG TABLET PO SCH (09:16)
[2019-06-24] MEDS: Nicotine 14 MG PATCH.TD24 TD SCH (09:17)
[2019-06-24] MEDS: Azithromycin 250 MG TABLET PO SCH (09:17)
[2019-06-24 10:17] VITALS: BP 135/71
== END 2019-06-24 13:34 | disposition home or self-care (01) | DRG 190 ==
LOC: EMEROOARM 19:16 → 3ANU 19:16 → SUATTDRO 21:53 → 3ANU 23:56
PROVIDERS: ADMIT Family Medicine; ATTEND Internal Medicine

== ENCOUNTER 2020-12-19 11:40 | Inpatient (IN) ==
[2020-12-19] MEDS ORDERED: 0.9 % Sodium Chloride 1,000 ML ONE (11:48)
[2020-12-19 12:15] LABS: Basophils # 0.1 K/mcL (0.0-0.2); Basophils % 0.5 %; Eosinophils # 0.2 K/mcL (0.0-0.6); Eosinophils % 1.4 %; Hematocrit 41.6 % (35.3-44.9); Hemoglobin 14.1 g/dL (11.5-15.4); Immature Granulocytes % 0.4 % (0-4); Lymphocytes # 3.3 K/mcL (0.6-4.6); Lymphocytes % 29.8 %; Mean Corpuscular HGB Conc 33.9 g/dL (31.6-35.5); Mean Corpuscular Hemoglobin 29.2 pg (28.0-33.3); Mean Corpuscular Volume 86.1 fL (83.0-100.0); Mean Platelet Volume 10.1 fL (9.4-12.4); Monocytes # 0.4 K/mcL (0.0-1.3); Monocytes % 3.8 %; Neutrophils # 7.1 K/mcL (1.6-8.9); Platelet Count 330 K/mcL (140-400); Red Blood Count 4.83 M/mcL (3.82-4.97); Red Cell Distribution Width 15.1 % (11.5-14.5); Segmented Neutrophils % 64.1 %; White Blood Count 11.1 K/mcL (4.3-11.1)
[2020-12-19 12:23] LABS: INR 1.1
[2020-12-19 12:38] LABS: Alanine Aminotransferase 14 Units/L (7-52); Albumin 3.5 g/dL (3.5-5.7); Albumin/Globulin Ratio 1.1 (1.1-2.2); Alkaline Phosphatase 166 Units/L (34-104); Aspartate Amino Transferase 21 Units/L (13-39); BUN/Creatinine Ratio 12 (6-26); Bilirubin,Total 0.3 mg/dL (0.3-1.0); Blood Urea Nitrogen 12 mg/dL (8-23); Calcium 8.3 mg/dL (8.6-10.3); Carbon Dioxide 17 mEq/L (23-29); Chloride 98 mEq/L (98-107); Creatine Kinase 136 Units/L (30-223); Globulin 3.3 g/dL (2.4-3.5); Glucose 158 mg/dL (70-105); Lipase 77 Units/L (11-82); Osmolality,Calculated 269 (280-300); Potassium 4.1 mEq/L (3.5-5.1); Sodium 128 mEq/L (136-145); Total Protein 6.8 g/dL (6.4-8.9); Troponin I < 0.03 ng/mL (< 0.04); eGFR For African Americans > 60 (> 60); eGFR For Non-African Americans 54 (> 60)
[2020-12-19 12:51] LABS: Thyroid Stimulating Hormone 1.974 mcIU/mL (0.340-5.600)
[2020-12-19] MEDS ORDERED: 0.9 % Sodium Chloride 1,000 ML IV ONE ×2 (13:02→15:57)
[2020-12-19 15:16] LABS: Bilirubin,Urine Negative (Negative); Blood,Urine Negative (Negative); Clarity,Urine Clear (Clear); Color,Urine Yellow (Yellow); Glucose,Urine (UA) Normal (Normal); Hyaline Casts,Urine Many per lpf (None Seen); Ketones,Urine Negative (Negative); Leukocyte Esterase,Urine Negative (Negative); Mucus,Urine Few per lpf (None-Few); Nitrite,Urine Negative (Negative); PH,Urine 6.5 pH Units (5.0-8.0); Protein,Urine 70 mg/dL (Neg-Trace); RBC,Urine 0-3 per hpf (0-3); Specific Gravity,Urine 1.016 (1.010-1.025); Squamous Epithelial Cell,Urine Few per hpf (None-Few); Urobilinogen,Urine Normal (Normal); WBC,Urine 0-3 per hpf (0-3)
[2020-12-19] MEDS ORDERED: Morphine Sulfate 2 MG/ML SYRINGE IVP ONE ×2 (15:57→17:37)
[2020-12-19] MEDS ORDERED: Ondansetron 4 MG/2 ML VIAL IVP ONE (17:42)
[2020-12-19] MEDS ORDERED: Piperacillin/Tazobactam 3.375 GM in 0.9 % Sodium Chloride Mini Bag 100 ML IVP ONE (18:00)
[2020-12-19] MEDS: Norepinephrine 4 MG/254 ML IV.SOLN IVC SCH (18:33)
[2020-12-19] MEDS ORDERED: Naloxone 0.4 MG/ML INJ IVP PRN (18:38)
[2020-12-19] MEDS ORDERED: Acetaminophen 325 MG TABLET PO PRN (18:38)
[2020-12-19] MEDS ORDERED: Ondansetron 4 MG/2 ML VIAL IVP PRN (18:48)
[2020-12-19] MEDS ORDERED: Morphine Sulfate 2 MG/ML SYRINGE IVP PRN (18:48)
[2020-12-19] MEDS ORDERED: Vancomycin (wt based) 1,000 MG VIAL IVPB SCH (19:00)
[2020-12-19] MEDS ORDERED: Azithromycin 500 MG in 0.9 % Sodium Chloride 250 ML IVPB SCH (19:00)
[2020-12-19] MEDS: Pantoprazole 40 MG VIAL IVP SCH (19:16)
[2020-12-19] MEDS ORDERED: Ipratropium/Albuterol Neb 3 ML IH PRN (19:36)
[2020-12-19 19:55] LABS: Calcium 7.5 mg/dL (8.6-10.3); Potassium 4.8 mEq/L (3.5-5.1)
[2020-12-19] MEDS ORDERED: Ringers Solution, Lactated 1,000 ML IVC ONE (20:21)
[2020-12-19 20:24] LABS: Adenovirus Not Detected (Not Detect); Coronavirus 229E Not Detected (Not Detect); Coronavirus HKU1 Not Detected (Not Detect); Coronavirus NL63 Not Detected (Not Detect); Coronavirus OC43 Not Detected (Not Detect); Human Metapneumovirus Not Detected (Not Detect); Human Rhinovirus/Enterovirus Not Detected (Not Detect); Influenza A Subtype 2009 H1 Not Detected (Not Detect); SARS-CoV-2 Not Detected (Not Detect)
[2020-12-19 20:25] LABS: Bordetella Pertussis Not Detected (Not Detect); Chlamydophila pneumoniae Not Detected (Not Detect); Influenza B Not Detected (Not Detect); Mycoplasma pneumoniae Not Detected (Not Detect); Parainfluenza Virus 1 Not Detected (Not Detect); Parainfluenza Virus 2 Not Detected (Not Detect); Parainfluenza Virus 3 Not Detected (Not Detect); Parainfluenza Virus 4 Not Detected (Not Detect); Respiratory Syncytial Virus Not Detected (Not Detect)
[2020-12-19] MEDS: Albumin Human 5% 12.5 GM/250 ML IV.SOLN IVC SCH (20:25)
[2020-12-19] MEDS: MetroNIDAZOLE 500 MG/100 ML 500 MG/100 ML BAG IVPB SCH (21:21)
[2020-12-19 21:52] LABS: Basophils % 0.2 %; Hematocrit 37.3 % (35.3-44.9); Hemoglobin 11.6 g/dL (11.5-15.4); Immature Granulocytes % 0.3 % (0-4); Mean Corpuscular HGB Conc 31.1 g/dL (31.6-35.5); Mean Corpuscular Hemoglobin 28.1 pg (28.0-33.3); Mean Corpuscular Volume 90.3 fL (83.0-100.0); Mean Platelet Volume 10.2 fL (9.4-12.4); Monocytes # 0.4 K/mcL (0.0-1.3); Platelet Count 268 K/mcL (140-400); Red Blood Count 4.13 M/mcL (3.82-4.97); Red Cell Distribution Width 15.4 % (11.5-14.5); Segmented Neutrophils % 87.5 %; White Blood Count 9.3 K/mcL (4.3-11.1)
[2020-12-19 22:00] LABS: Lymphocytes # 0.7 K/mcL (0.6-4.6); Neutrophils # 8.1 K/mcL (1.6-8.9)
[2020-12-19 22:11] LABS: Albumin 2.9 g/dL (3.5-5.7); Albumin/Globulin Ratio 1.1 (1.1-2.2); Bilirubin,Direct 0.3 mg/dL (0.0-0.2); Bilirubin,Indirect 0.4 mg/dL (0.0-1.0); Bilirubin,Total 0.7 mg/dL (0.3-1.0); Globulin 2.6 g/dL (2.4-3.5); Total Protein 5.5 g/dL (6.4-8.9)
[2020-12-19 22:12] LABS: Calcium 7.3 mg/dL (8.6-10.3)
[2020-12-19 22:27] LABS: Platelet Estimate Normal (Normal)
[2020-12-20] MEDS ORDERED: Cefepime HCl 2,000 MG in Water for inj. (sterile) 20 ML IVP SCH
[2020-12-20] MEDS: Albumin Human 5% 12.5 GM/250 ML IV.SOLN IVC SCH ×3 (00:07→19:30)
[2020-12-20] MEDS ORDERED: Ringers Solution, Lactated 1,000 ML IVC SCH ×2 (03:00→03:45)
[2020-12-20] MEDS: MetroNIDAZOLE 500 MG/100 ML 500 MG/100 ML BAG IVPB SCH ×3 (03:04→20:23)
[2020-12-20 05:10] LABS: Hematocrit 29.8 % (35.3-44.9); Mean Corpuscular HGB Conc 31.5 g/dL (31.6-35.5); Mean Corpuscular Hemoglobin 28.4 pg (28.0-33.3); Mean Platelet Volume 10.1 fL (9.4-12.4); Platelet Count 194 K/mcL (140-400); Red Blood Count 3.31 M/mcL (3.82-4.97); Red Cell Distribution Width 15.4 % (11.5-14.5); White Blood Count 7.8 K/mcL (4.3-11.1)
[2020-12-20 05:12] LABS: VBG HCO3 17 mEq/L (21-27); VBG PCO2 42 mmHg (41-51); VBG PH 7.22 pH Units (7.32-7.42); VBG PO2 79 mmHg (25-50)
[2020-12-20 05:14] LABS: Hemoglobin 9.4 g/dL (11.5-15.4)
[2020-12-20 05:18] LABS: VBG Ionized Calcium 1.04 mmol/L (1.15-1.35)
[2020-12-20 05:32] LABS: Albumin/Globulin Ratio 1.5 (1.1-2.2); Bilirubin,Direct 0.2 mg/dL (0.0-0.2); Bilirubin,Indirect 0.2 mg/dL (0.0-1.0); Bilirubin,Total 0.4 mg/dL (0.3-1.0); Calcium 7.3 mg/dL (8.6-10.3); Magnesium 2.2 mg/dL (1.6-2.6); Phosphorous 5.6 mg/dL (2.7-4.5); Potassium 4.3 mEq/L (3.5-5.1)
[2020-12-20 05:34] LABS: Lymphocytes # 1.4 K/mcL (0.6-4.6); Neutrophils # 6.2 K/mcL (1.6-8.9); Platelet Estimate Normal (Normal); Reactive Lymphocytes Present (Not Present)
[2020-12-20] MEDS ORDERED: *HR* Heparin 5,000 UNIT/ML VIAL SQ SCH (06:00)
[2020-12-20] MEDS ORDERED: Ringers Solution, Lactated 250 ML IVC PRN ×2 (06:17→16:12)
[2020-12-20] MEDS: Pantoprazole 40 MG VIAL IVP SCH ×2 (06:40→17:59)
[2020-12-20] MEDS: Norepinephrine 4 MG/254 ML IV.SOLN IVC SCH ×2 (08:10→15:30)
[2020-12-20] MEDS: Calcium Gluconate 1gm/50mL 1 GM/50 ML BAG IVPB SCH ×2 (08:46→09:37)
[2020-12-20] MEDS ORDERED: Vancomycin 1 EACH in 0.9 % Sodium Chloride 250 ML IVPB PRN ×2 (09:00→16:12)
[2020-12-20] MEDS ORDERED: Cefepime HCl 1,000 MG in Water for inj. (sterile) 10 ML IVP SCH (12:00)
[2020-12-20] MEDS ORDERED: Ondansetron 4 MG/2 ML VIAL ONE (13:22)
[2020-12-20] MEDS ORDERED: *HR* FentaNYL (PF) 100 MCG/2 ML VIAL ONE (13:22)
[2020-12-20] MEDS ORDERED: *HR* Rocuronium Bromide 50 MG/5 ML VIAL ONE (13:22)
[2020-12-20] MEDS ORDERED: Lidocaine -MPF 2% 2 ML VIAL ONE (13:22)
[2020-12-20] MEDS ORDERED: *HR* Propofol 200 MG/20 ML VIAL IVP ONE (13:22)
[2020-12-20] MEDS ORDERED: Heparin 1,000 UNITS/500 mL 500 ML ONE (13:24)
[2020-12-20] MEDS ORDERED: *HR* Vasopressin 20 UNIT/ML VIAL ONE (14:43)
[2020-12-20] MEDS ORDERED: Albumin Human 5% 12.5 GM/250 ML IV.SOLN ONE (14:43)
[2020-12-20] MEDS ORDERED: Ondansetron 4 MG/2 ML VIAL IVP PRN (16:12)
[2020-12-20] MEDS ORDERED: Norepinephrine 4 MG/254 ML IV.SOLN IVC SCH (16:12)
[2020-12-20] MEDS ORDERED: Naloxone 0.4 MG/ML INJ IVP PRN (16:12)
[2020-12-20] MEDS ORDERED: Morphine Sulfate 2 MG/ML SYRINGE IVP PRN (16:12)
[2020-12-20] MEDS ORDERED: Ipratropium/Albuterol Neb 3 ML IH PRN (16:12)
[2020-12-20] MEDS ORDERED: Acetaminophen 325 MG TABLET PO PRN (16:12)
[2020-12-20] MEDS ORDERED: Artificial Tears SOLN 15 ML BOTTLE BOTH EYES PRN (16:15)
[2020-12-20] MEDS: Ringers Solution, Lactated 1,000 ML IVC SCH (16:40)
[2020-12-20] MEDS: FentaNYL (PF) 1,000 MCG/100 ML IV.SOLN IVC SCH ×2 (16:48→23:59)
[2020-12-20] MEDS: *HR* Heparin 5,000 UNIT/ML VIAL SQ SCH (17:59)
[2020-12-20] MEDS ORDERED: Phenylephrine 10 MG in 0.9 % Sodium Chloride 250 ML IVC SCH (18:30)
[2020-12-20 18:37] LABS: ABG Base Excess -9 mEq/L (-2 to 3); ABG HCO3 19 mEq/L (21-27); ABG Oxygen Saturation 89 % (95-98); ABG PCO2 49 mmHg (35-45); ABG PH 7.18 pH Units (7.32-7.45); ABG PO2 70 mmHg (85-104); ABG TCO2 20 mEq/L (20-26); Blood Gas Modality ASSIST CONTROL; Blood Gas VT 400 cc
[2020-12-20 18:50] LABS: Basophils % 0.2 %; Hematocrit 28.5 % (35.3-44.9); Hemoglobin 9.1 g/dL (11.5-15.4); Lymphocytes # 0.6 K/mcL (0.6-4.6); Lymphocytes % 7.2 %; Mean Corpuscular HGB Conc 31.9 g/dL (31.6-35.5); Mean Corpuscular Hemoglobin 28.6 pg (28.0-33.3); Mean Corpuscular Volume 89.6 fL (83.0-100.0); Monocytes # 0.3 K/mcL (0.0-1.3); Monocytes % 3.1 %; Platelet Count 184 K/mcL (140-400); Red Blood Count 3.18 M/mcL (3.82-4.97); Red Cell Distribution Width 15.6 % (11.5-14.5); Segmented Neutrophils % 88.5 %; White Blood Count 8.8 K/mcL (4.3-11.1)
[2020-12-20 18:52] LABS: Neutrophils # 7.8 K/mcL (1.6-8.9)
[2020-12-20] MEDS ORDERED: Azithromycin 500 MG in 0.9 % Sodium Chloride 250 ML IVPB SCH (19:00)
[2020-12-20 19:13] LABS: Alanine Aminotransferase 23 Units/L (7-52); Albumin/Globulin Ratio 1.5 (1.1-2.2); Alkaline Phosphatase 130 Units/L (34-104); Aspartate Amino Transferase 40 Units/L (13-39); BUN/Creatinine Ratio 26 (6-26); Bilirubin,Total 0.3 mg/dL (0.3-1.0); Blood Urea Nitrogen 35 mg/dL (8-23); Calcium 7.5 mg/dL (8.6-10.3); Carbon Dioxide 16 mEq/L (23-29); Chloride 110 mEq/L (98-107); Glucose 103 mg/dL (70-105); Magnesium 2.1 mg/dL (1.6-2.6); Osmolality,Calculated 288 (280-300); Phosphorous 6.5 mg/dL (2.7-4.5); Potassium 4.5 mEq/L (3.5-5.1); Sodium 135 mEq/L (136-145); Troponin I < 0.03 ng/mL (< 0.04); eGFR For African Americans 46 (> 60); eGFR For Non-African Americans 38 (> 60)
[2020-12-20 19:23] LABS: Platelet Estimate Normal (Normal)
[2020-12-20] MEDS: Chlorhexidine Rinse 15 ML MOUTHWASH MM SCH (20:23)
[2020-12-20] MEDS: Artificial Tears SOLN 15 ML BOTTLE BOTH EYES SCH (20:23)
[2020-12-20 20:24] LABS: ABG Base Excess -6 mEq/L (-2 to 3); ABG HCO3 20 mEq/L (21-27); ABG Oxygen Saturation 91 % (95-98); ABG PCO2 40 mmHg (35-45); ABG PH 7.31 pH Units (7.32-7.45); ABG PO2 67 mmHg (85-104); ABG TCO2 22 mEq/L (20-26); Blood Gas VT 400 cc
[2020-12-20] MEDS: Phenylephrine 50 MG in 0.9 % Sodium Chloride 250 ML IVC SCH (20:59)
[2020-12-20] MEDS: Vasopressin 40 UNIT in D5% in Water 100 ML IVC SCH (20:59)
[2020-12-20] MEDS: Budesonide/Formoterol 160/4.5 1 PUFF INH IH SCH (21:31)
[2020-12-20] MEDS: Norepinephrine 8 MG in 0.9 % Sodium Chloride 250 ML IVC SCH (21:47)
[2020-12-21 00:12] LABS: Albumin 3.3 g/dL (3.5-5.7); Albumin/Globulin Ratio 1.5 (1.1-2.2); Bilirubin,Direct 0.1 mg/dL (0.0-0.2); Bilirubin,Indirect 0.3 mg/dL (0.0-1.0); Bilirubin,Total 0.4 mg/dL (0.3-1.0); Calcium 7.7 mg/dL (8.6-10.3); Globulin 2.2 g/dL (2.4-3.5); Potassium 4.3 mEq/L (3.5-5.1); Total Protein 5.5 g/dL (6.4-8.9)
[2020-12-21] MEDS: Norepinephrine 8 MG in 0.9 % Sodium Chloride 250 ML IVC SCH ×3 (01:22→17:42)
[2020-12-21] MEDS: Artificial Tears SOLN 15 ML BOTTLE BOTH EYES SCH ×7 (03:20→23:53)
[2020-12-21] MEDS: MetroNIDAZOLE 500 MG/100 ML 500 MG/100 ML BAG IVPB SCH ×3 (03:20→18:00)
[2020-12-21 03:35] LABS: ABG Base Excess -5 mEq/L (-2 to 3); ABG HCO3 21 mEq/L (21-27); ABG Oxygen Saturation 95 % (95-98); ABG PCO2 40 mmHg (35-45); ABG PH 7.32 pH Units (7.32-7.45); ABG PO2 82 mmHg (85-104); ABG TCO2 22 mEq/L (20-26); Blood Gas VT 400 cc
[2020-12-21 03:47] LABS: Hemoglobin 6.6 g/dL (11.5-15.4); Immature Platelets 4.7 % (1.1-6.1); Lymphocytes # 0.3 K/mcL (0.6-4.6); Mean Corpuscular HGB Conc 31.4 g/dL (31.6-35.5); Mean Corpuscular Hemoglobin 28.2 pg (28.0-33.3); Mean Corpuscular Volume 89.7 fL (83.0-100.0); Mean Platelet Volume 10.9 fL (9.4-12.4); Platelet Count 116 K/mcL (140-400); Red Blood Count 2.34 M/mcL (3.82-4.97); Red Cell Distribution Width 15.7 % (11.5-14.5); White Blood Count 8.2 K/mcL (4.3-11.1)
[2020-12-21 03:50] LABS: VBG Ionized Calcium 0.95 mmol/L (1.15-1.35)
[2020-12-21 04:01] LABS: Calcium 7.6 mg/dL (8.6-10.3); Potassium 4.6 mEq/L (3.5-5.1)
[2020-12-21 04:17] LABS: Hypochromasia Present (Not Present)
[2020-12-21 04:18] LABS: Neutrophils # 7.5 K/mcL (1.6-8.9)
[2020-12-21 04:19] LABS: Platelet Estimate Slight Decrease (Normal)
[2020-12-21 04:21] LABS: Alanine Aminotransferase 13 Units/L (7-52); Albumin 2.2 g/dL (3.5-5.7); Albumin/Globulin Ratio 1.6 (1.1-2.2); Alkaline Phosphatase 72 Units/L (34-104); Aspartate Amino Transferase 26 Units/L (13-39); Bilirubin,Direct 0.1 mg/dL (0.0-0.2); Bilirubin,Indirect 0.1 mg/dL (0.0-1.0); Bilirubin,Total 0.2 mg/dL (0.3-1.0); Globulin 1.4 g/dL (2.4-3.5); Magnesium 1.3 mg/dL (1.6-2.6); Phosphorous > 20.0 mg/dL (2.7-4.5); Total Protein 3.6 g/dL (6.4-8.9)
[2020-12-21] MEDS ORDERED: 0.9 % Sodium Chloride 250 ML ONE (04:21)
[2020-12-21] MEDS: Ringers Solution, Lactated 1,000 ML IVC SCH (04:28)
[2020-12-21] MEDS ORDERED: Acetaminophen IV 1,000 MG/100 ML BAG IVPB PRN (04:28)
[2020-12-21] MEDS: Pantoprazole 40 MG VIAL IVP SCH ×2 (04:29→18:00)
[2020-12-21] MEDS: *HR* Heparin 5,000 UNIT/ML VIAL SQ SCH (04:29)
[2020-12-21] MEDS ORDERED: 0.9 % Sodium Chloride 250 ML IVC SCH (04:30)
[2020-12-21] MEDS ORDERED: 0.9 % Sodium Chloride 1,000 ML IVC SCH (05:30)
[2020-12-21 07:14] LABS: BUN/Creatinine Ratio 26 (6-26); Blood Urea Nitrogen 28 mg/dL (8-23); Calcium 7.6 mg/dL (8.6-10.3); Carbon Dioxide 19 mEq/L (23-29); Chloride 110 mEq/L (98-107); Glucose 126 mg/dL (70-105); Magnesium 2.4 mg/dL (1.6-2.6); Osmolality,Calculated 289 (280-300); Phosphorous 4.2 mg/dL (2.7-4.5); Potassium 4.3 mEq/L (3.5-5.1); Sodium 136 mEq/L (136-145); eGFR For African Americans > 60 (> 60); eGFR For Non-African Americans 50 (> 60)
[2020-12-21] MEDS: Budesonide/Formoterol 160/4.5 1 PUFF INH IH SCH ×2 (07:19→19:26)
[2020-12-21] MEDS: Chlorhexidine Rinse 15 ML MOUTHWASH MM SCH ×2 (08:00→20:39)
[2020-12-21] MEDS: FentaNYL (PF) 1,000 MCG/100 ML IV.SOLN IVC SCH ×2 (10:08→18:37)
[2020-12-21] MEDS: Vasopressin 40 UNIT in D5% in Water 100 ML IVC SCH (10:25)
[2020-12-21] MEDS: Calcium Gluconate 1gm/50mL 1 GM/50 ML BAG IVPB SCH ×2 (10:39→11:37)
[2020-12-21 10:49] LABS: Hematocrit 28.7 % (35.3-44.9)
[2020-12-21 10:50] LABS: Hemoglobin 9.6 g/dL (11.5-15.4)
[2020-12-21] MEDS: Cefepime HCl 1,000 MG in Water for inj. (sterile) 10 ML IVP SCH ×3 (12:21→20:38)
[2020-12-21] MEDS ORDERED: Perflutren Lipid Microsphere 1.3 ML in 0.9 % Sodium Chloride 8.7 ML IVP PRN (15:20)
[2020-12-21 16:52] LABS: Hematocrit 28.5 % (35.3-44.9); Hemoglobin 9.1 g/dL (11.5-15.4)
[2020-12-21 21:23] LABS: Hematocrit 28.1 % (35.3-44.9); Hemoglobin 9.1 g/dL (11.5-15.4)
[2020-12-22 04:23] LABS: ABG Base Excess -5 mEq/L (-2 to 3); ABG HCO3 21 mEq/L (21-27); ABG Oxygen Saturation 92 % (95-98); ABG PCO2 38 mmHg (35-45); ABG PH 7.34 pH Units (7.32-7.45); ABG PO2 67 mmHg (85-104); ABG TCO2 22 mEq/L (20-26); Blood Gas Modality ASSIST CONTROL; Blood Gas VT 400 cc
[2020-12-22 04:37] LABS: Hematocrit 27.8 % (35.3-44.9); Hemoglobin 8.9 g/dL (11.5-15.4); Mean Corpuscular Hemoglobin 28.3 pg (28.0-33.3); Mean Corpuscular Volume 88.3 fL (83.0-100.0); Mean Platelet Volume 10.8 fL (9.4-12.4); Platelet Count 111 K/mcL (140-400); Red Blood Count 3.15 M/mcL (3.82-4.97); Red Cell Distribution Width 15.9 % (11.5-14.5); White Blood Count 10.7 K/mcL (4.3-11.1)
[2020-12-22] MEDS: FentaNYL (PF) 1,000 MCG/100 ML IV.SOLN IVC SCH (04:37)
[2020-12-22] MEDS: Cefepime HCl 1,000 MG in Water for inj. (sterile) 10 ML IVP SCH ×3 (04:42→20:01)
[2020-12-22] MEDS: MetroNIDAZOLE 500 MG/100 ML 500 MG/100 ML BAG IVPB SCH ×3 (04:42→17:46)
[2020-12-22] MEDS: Artificial Tears SOLN 15 ML BOTTLE BOTH EYES SCH ×5 (04:43→20:01)
[2020-12-22 04:56] LABS: BUN/Creatinine Ratio 32 (6-26); Blood Urea Nitrogen 29 mg/dL (8-23); Calcium 8.4 mg/dL (8.6-10.3); Carbon Dioxide 19 mEq/L (23-29); Chloride 113 mEq/L (98-107); Glucose 108 mg/dL (70-105); Magnesium 2.3 mg/dL (1.6-2.6); Osmolality,Calculated 294 (280-300); Phosphorous 2.9 mg/dL (2.7-4.5); Sodium 139 mEq/L (136-145); eGFR For African Americans > 60 (> 60); eGFR For Non-African Americans > 60 (> 60)
[2020-12-22 05:32] LABS: Hypochromasia Present (Not Present); Lymphocytes # 0.2 K/mcL (0.6-4.6); Monocytes # 0.2 K/mcL (0.0-1.3); Neutrophils # 10.3 K/mcL (1.6-8.9); Platelet Estimate Slight Decrease (Normal)
[2020-12-22] MEDS: Pantoprazole 40 MG VIAL IVP SCH ×2 (06:50→17:45)
[2020-12-22] MEDS: Budesonide/Formoterol 160/4.5 1 PUFF INH IH SCH ×2 (07:34→19:27)
[2020-12-22] MEDS: Phenylephrine 50 MG in 0.9 % Sodium Chloride 250 ML IVC SCH (08:24)
[2020-12-22] MEDS: Chlorhexidine Rinse 15 ML MOUTHWASH MM SCH ×2 (08:33→20:00)
[2020-12-22] MEDS ORDERED: Albumin 25% 25gram/100mL 25 GM/100 ML IV.SOLN ONE (09:53)
[2020-12-22] MEDS ORDERED: Albumin Human 5% 12.5 GM/250 ML IV.SOLN ONE (09:55)
[2020-12-22 10:26] LABS: Hematocrit 26.2 % (35.3-44.9); Hemoglobin 8.5 g/dL (11.5-15.4)
[2020-12-22] MEDS: Albumin Human 5% 12.5 GM/250 ML IV.SOLN IVC SCH ×2 (11:12→16:12)
[2020-12-22] MEDS ORDERED: Vancomycin 1,250 MG/262.5 ML IV.SOLN IVPB SCH (13:00)
[2020-12-23] MEDS: Artificial Tears SOLN 15 ML BOTTLE BOTH EYES SCH ×7 (00:52→23:04)
[2020-12-23] MEDS: FentaNYL (PF) 1,000 MCG/100 ML IV.SOLN IVC SCH ×3 (01:39→22:58)
[2020-12-23 04:08] LABS: ABG Base Excess -4 mEq/L (-2 to 3); ABG HCO3 21 mEq/L (21-27); ABG Oxygen Saturation 95 % (95-98); ABG PCO2 37 mmHg (35-45); ABG PH 7.36 pH Units (7.32-7.45); ABG PO2 76 mmHg (85-104); ABG TCO2 22 mEq/L (20-26); Blood Gas Modality ASSIST CONTROL; Blood Gas VT 400 cc
[2020-12-23 04:10] LABS: ABG Ionized Calcium 1.19 mmol/L (1.15-1.35)
[2020-12-23 04:30] LABS: BUN/Creatinine Ratio 43 (6-26); Blood Urea Nitrogen 36 mg/dL (8-23); Calcium 8.3 mg/dL (8.6-10.3); Carbon Dioxide 19 mEq/L (23-29); Chloride 115 mEq/L (98-107); Glucose 131 mg/dL (70-105); Magnesium 2.3 mg/dL (1.6-2.6); Osmolality,Calculated 304 (280-300); Phosphorous 1.8 mg/dL (2.7-4.5); Potassium 3.5 mEq/L (3.5-5.1); Sodium 142 mEq/L (136-145); eGFR For African Americans > 60 (> 60); eGFR For Non-African Americans > 60 (> 60)
[2020-12-23] MEDS: Cefepime HCl 1,000 MG in Water for inj. (sterile) 10 ML IVP SCH ×3 (04:52→20:09)
[2020-12-23] MEDS: MetroNIDAZOLE 500 MG/100 ML 500 MG/100 ML BAG IVPB SCH ×3 (04:54→17:52)
[2020-12-23 05:39] LABS: Hematocrit 26.9 % (35.3-44.9)
[2020-12-23 05:40] LABS: Immature Platelets 7.1 % (1.1-6.1); Mean Corpuscular HGB Conc 33.5 g/dL (31.6-35.5); Mean Corpuscular Hemoglobin 29.3 pg (28.0-33.3); Mean Corpuscular Volume 87.6 fL (83.0-100.0); Mean Platelet Volume 11.6 fL (9.4-12.4); Red Blood Count 3.07 M/mcL (3.82-4.97); Red Cell Distribution Width 16.2 % (11.5-14.5); White Blood Count 15.2 K/mcL (4.3-11.1)
[2020-12-23] MEDS: Pantoprazole 40 MG VIAL IVP SCH ×2 (06:08→17:52)
[2020-12-23] MEDS: *HR* Heparin 5,000 UNIT/ML VIAL SQ SCH ×2 (06:08→17:52)
[2020-12-23] MEDS: Budesonide/Formoterol 160/4.5 1 PUFF INH IH SCH ×2 (07:30→22:10)
[2020-12-23] MEDS: Chlorhexidine Rinse 15 ML MOUTHWASH MM SCH ×2 (07:46→20:10)
[2020-12-23] MEDS ORDERED: *HR* Metoprolol 5 MG/5 ML VIAL IVP ONE ×4 (08:33→08:42)
[2020-12-23] MEDS: Furosemide 20 MG/2 ML VIAL IVP SCH ×2 (09:00→20:09)
[2020-12-23] MEDS ORDERED: Levalbuterol 1 PUFF INHALER IH SCH (10:00)
[2020-12-23 12:08] LABS: Phosphorous 2.2 mg/dL (2.7-4.5); Potassium 3.9 mEq/L (3.5-5.1)
[2020-12-23] MEDS ORDERED: Aspirin 81 MG TAB.CHEW PO SCH (12:45)
[2020-12-23] MEDS ORDERED: Gadolinium Contrast Agent (WT Based) IV PRN (12:45)
[2020-12-23] MEDS: Vancomycin 1,500 MG/265 ML IV.SOLN IVPB SCH (12:59)
[2020-12-23 14:05] LABS: ABG Base Excess -3 mEq/L (-2 to 3); ABG HCO3 21 mEq/L (21-27); ABG Oxygen Saturation 88 % (95-98); ABG PCO2 35 mmHg (35-45); ABG PH 7.39 pH Units (7.32-7.45); ABG PO2 54 mmHg (85-104); ABG TCO2 22 mEq/L (20-26); Blood Gas VT 400 cc
[2020-12-23] MEDS: Norepinephrine 8 MG in 0.9 % Sodium Chloride 250 ML IVC SCH (14:40)
[2020-12-23] MEDS: Levalbuterol Neb 1.25 MG/3 ML IH SCH ×2 (15:42→22:10)
[2020-12-23] MEDS: Aspirin 81 MG TAB.CHEW PO SCH (15:53)
[2020-12-23] MEDS: Potassium Chloride Elixir 20 MEQ/15 ML UDC GTUBE SCH (20:10)
[2020-12-23 22:40] LABS: ABG Base Excess -4 mEq/L (-2 to 3); ABG HCO3 23 mEq/L (21-27); ABG Oxygen Saturation 61 % (95-98); ABG PCO2 53 mmHg (35-45); ABG PH 7.25 pH Units (7.32-7.45); ABG PO2 37 mmHg (85-104); ABG TCO2 25 mEq/L (20-26); Blood Gas VT 400 cc
[2020-12-24] MEDS: MetroNIDAZOLE 500 MG/100 ML 500 MG/100 ML BAG IVPB SCH ×3 (03:50→17:57)
[2020-12-24] MEDS: Cefepime HCl 1,000 MG in Water for inj. (sterile) 10 ML IVP SCH ×3 (03:50→20:19)
[2020-12-24] MEDS: Artificial Tears SOLN 15 ML BOTTLE BOTH EYES SCH ×6 (03:50→23:13)
[2020-12-24] MEDS: Levalbuterol Neb 1.25 MG/3 ML IH SCH ×4 (04:10→21:32)
[2020-12-24 04:37] LABS: Hematocrit 26.8 % (35.3-44.9); Hemoglobin 8.4 g/dL (11.5-15.4); Immature Platelets 7.2 % (1.1-6.1); Mean Corpuscular HGB Conc 31.3 g/dL (31.6-35.5); Mean Corpuscular Hemoglobin 28.7 pg (28.0-33.3); Mean Corpuscular Volume 91.5 fL (83.0-100.0); Mean Platelet Volume 10.7 fL (9.4-12.4); Red Blood Count 2.93 M/mcL (3.82-4.97); Red Cell Distribution Width 17.2 % (11.5-14.5); White Blood Count 10.6 K/mcL (4.3-11.1)
[2020-12-24 04:51] LABS: ABG Base Excess -4 mEq/L (-2 to 3); ABG HCO3 24 mEq/L (21-27); ABG Oxygen Saturation 91 % (95-98); ABG PCO2 53 mmHg (35-45); ABG PH 7.26 pH Units (7.32-7.45); ABG PO2 71 mmHg (85-104); ABG TCO2 25 mEq/L (20-26); Blood Gas VT 400 cc
[2020-12-24 04:54] LABS: BUN/Creatinine Ratio 47 (6-26); Blood Urea Nitrogen 35 mg/dL (8-23); Calcium 7.7 mg/dL (8.6-10.3); Carbon Dioxide 22 mEq/L (23-29); Chloride 119 mEq/L (98-107); Glucose 173 mg/dL (70-105); Magnesium 1.9 mg/dL (1.6-2.6); Osmolality,Calculated 316 (280-300); Phosphorous 2.8 mg/dL (2.7-4.5); Potassium 4.2 mEq/L (3.5-5.1); Sodium 147 mEq/L (136-145); eGFR For African Americans > 60 (> 60); eGFR For Non-African Americans > 60 (> 60)
[2020-12-24] MEDS: *HR* Heparin 5,000 UNIT/ML VIAL SQ SCH ×2 (05:19→17:56)
[2020-12-24] MEDS: Pantoprazole 40 MG VIAL IVP SCH ×2 (05:19→17:57)
[2020-12-24] MEDS: Chlorhexidine Rinse 15 ML MOUTHWASH MM SCH ×2 (07:49→20:19)
[2020-12-24] MEDS: Aspirin 81 MG TAB.CHEW PO SCH (07:50)
[2020-12-24] MEDS: Potassium Chloride Elixir 20 MEQ/15 ML UDC GTUBE SCH ×2 (07:50→20:19)
[2020-12-24] MEDS: Furosemide 20 MG/2 ML VIAL IVP SCH ×2 (07:50→20:19)
[2020-12-24] MEDS: FentaNYL (PF) 1,000 MCG/100 ML IV.SOLN IVC SCH ×2 (08:53→20:19)
[2020-12-24] MEDS: Budesonide/Formoterol 160/4.5 1 PUFF INH IH SCH ×2 (10:02→21:32)
[2020-12-24] MEDS: Vancomycin 1,500 MG/265 ML IV.SOLN IVPB SCH (11:54)
[2020-12-25] MEDS: Cefepime HCl 1,000 MG in Water for inj. (sterile) 10 ML IVP SCH (03:02)
[2020-12-25] MEDS: MetroNIDAZOLE 500 MG/100 ML 500 MG/100 ML BAG IVPB SCH (03:02)
[2020-12-25] MEDS: Artificial Tears SOLN 15 ML BOTTLE BOTH EYES SCH ×2 (03:03→07:56)
[2020-12-25] MEDS: Levalbuterol Neb 1.25 MG/3 ML IH SCH ×2 (03:20→09:57)
[2020-12-25 03:50] LABS: Basophils % 0.2 %; Eosinophils # 0.2 K/mcL (0.0-0.6); Eosinophils % 2.2 %; Hemoglobin 8.1 g/dL (11.5-15.4); Immature Granulocytes % 1.1 % (0-4); Immature Platelets 8.8 % (1.1-6.1); Lymphocytes # 1.2 K/mcL (0.6-4.6); Lymphocytes % 13.7 %; Mean Corpuscular HGB Conc 31.2 g/dL (31.6-35.5); Mean Corpuscular Hemoglobin 28.7 pg (28.0-33.3); Mean Corpuscular Volume 92.2 fL (83.0-100.0); Monocytes # 0.8 K/mcL (0.0-1.3); Monocytes % 8.9 %; Neutrophils # 6.4 K/mcL (1.6-8.9); Nucleated Red Blood Cells 0.2 /100 WBC (0); Red Blood Count 2.82 M/mcL (3.82-4.97); Red Cell Distribution Width 17.6 % (11.5-14.5); Segmented Neutrophils % 73.9 %; White Blood Count 8.7 K/mcL (4.3-11.1)
[2020-12-25 04:01] LABS: BUN/Creatinine Ratio 49 (6-26); Blood Urea Nitrogen 32 mg/dL (8-23); Calcium 7.9 mg/dL (8.6-10.3); Carbon Dioxide 26 mEq/L (23-29); Chloride 119 mEq/L (98-107); Glucose 131 mg/dL (70-105); Osmolality,Calculated 313 (280-300); Potassium 4.9 mEq/L (3.5-5.1); Sodium 147 mEq/L (136-145); eGFR For African Americans > 60 (> 60); eGFR For Non-African Americans > 60 (> 60)
[2020-12-25 04:09] LABS: Platelet Count 66 K/mcL (140-400)
[2020-12-25 04:12] LABS: Anisocytosis 1+ (Not Present); Platelet Estimate Decreased (Normal); Poikilocytosis 1+ (Not Present); Target Cells 1+ (Not Present)
[2020-12-25 04:19] LABS: ABG Base Excess -1 mEq/L (-2 to 3); ABG HCO3 26 mEq/L (21-27); ABG Oxygen Saturation 99 % (95-98); ABG PCO2 55 mmHg (35-45); ABG PH 7.29 pH Units (7.32-7.45); ABG PO2 179 mmHg (85-104); ABG TCO2 28 mEq/L (20-26); Blood Gas Modality ASSIST CONTROL; Blood Gas VT 400 cc
[2020-12-25] MEDS: Pantoprazole 40 MG VIAL IVP SCH (05:13)
[2020-12-25] MEDS: *HR* Heparin 5,000 UNIT/ML VIAL SQ SCH (05:14)
[2020-12-25] MEDS: FentaNYL (PF) 1,000 MCG/100 ML IV.SOLN IVC SCH ×2 (07:15→14:23)
[2020-12-25] MEDS: Potassium Chloride Elixir 20 MEQ/15 ML UDC GTUBE SCH (07:55)
[2020-12-25] MEDS: Chlorhexidine Rinse 15 ML MOUTHWASH MM SCH (07:55)
[2020-12-25] MEDS: Furosemide 20 MG/2 ML VIAL IVP SCH (07:55)
[2020-12-25] MEDS: Aspirin 81 MG TAB.CHEW PO SCH (07:55)
[2020-12-25] MEDS: Budesonide/Formoterol 160/4.5 1 PUFF INH IH SCH (09:57)
[2020-12-25] MEDS ORDERED: Glycopyrrolate 0.2 MG/ML VIAL IVP ONE (10:15)
[2020-12-25] MEDS ORDERED: Haloperidol Lactate 5 MG/ML VIAL IVP PRN (10:18)
[2020-12-25] MEDS ORDERED: *HR* FentaNYL (PF) 100 MCG/2 ML VIAL IVP PRN (10:19)
[2020-12-25] MEDS: *HR* LORazepam 2 MG/ML VIAL IVP PRN ×3 (10:38→20:10)
[2020-12-25] MEDS: Atropine 1% Opth Drops 100 DROP/5 ML BOTTLE SL PRN ×2 (10:43→23:36)
[2020-12-25] MEDS: *HR* FentaNYL (PF) 100 MCG/2 ML VIAL IVP PRN ×2 (13:05→16:13)
[2020-12-26] MEDS: *HR* LORazepam 2 MG/ML VIAL IVP PRN ×3 (00:35→14:13)
[2020-12-26] MEDS: *HR* FentaNYL (PF) 100 MCG/2 ML VIAL IVP PRN ×2 (05:00→07:03)
[2020-12-26] MEDS: FentaNYL (PF) 1,000 MCG/100 ML IV.SOLN IVC SCH (07:14)
[2020-12-26 07:25] VITALS: BP 155/74; PULSE 95; TEMP 101.3; O2SAT 80
[2020-12-26 08:41] LABS: Acinetobacter baumannii by PCR Not Detected (Not Detect); Candida albicans by PCR Not Detected (Not Detect); Candida glabrata by PCR DETECTED (Not Detect); Candida krusei by PCR Not Detected (Not Detect); Candida parapsilosis by PCR Not Detected (Not Detect); Candida tropicalis by PCR Not Detected (Not Detect); Enterobacter cloacae Cmplx PCR Not Detected (Not Detect); Enterobacteriaceae by PCR Not Detected (Not Detect); Enterococcus by PCR Not Detected (Not Detect); Escherichia coli by PCR Not Detected (Not Detect); Klebsiella oxytoca by PCR Not Detected (Not Detect); Klebsiella pneumoniae by PCR Not Detected (Not Detect); Proteus by PCR Not Detected (Not Detect); Pseudomonas aeruginosa by PCR Not Detected (Not Detect); Serratia marcescens by PCR Not Detected (Not Detect); Staphylococcus aureus by PCR Not Detected (Not Detect); Staphylococcus by PCR Not Detected (Not Detect); Streptococcus agalactiae(B)PCR Not Detected (Not Detect); Streptococcus by PCR Not Detected (Not Detect); Streptococcus pneumoniae PCR Not Detected (Not Detect); Streptococcus pyogenes (A) PCR Not Detected (Not Detect)
[2020-12-26] MEDS ORDERED: Acetaminophen 650 MG RECTAL SUPP RC PRN (11:14)
== END 2020-12-26 15:27 | disposition expired | DRG 853 ==
LOC: EMEROOARM 11:40 → ICNU 18:32 → 2ANU 12-25 18:17
PROVIDERS: ADMIT Pediatrics; ATTEND Pediatrics